=== PATIENT | female | born 1950 | race Caucasian/White ===

== ENCOUNTER 2022-01-02 06:33 | Outpatient (CLI) | payer OTHER, SELFPAY ==
--- NOTE | ~2022-01-02 | MR_ITS ---
EXAMINATION: MR abdomen wo/w con DATE: 01/02/2022 08:01 INDICATION: Complex renal cyst. TECHNIQUE: Magnetic resonance imaging (MRI) of the abdomen was performed without and with 19 mL Multi Shaina intravenous contrast. COMPARISON: None. FINDINGS: There is a small sliding hiatal hernia. There is diffuse hepatic steatosis. The gallbladder is absent . The spleen, pancreas, and right adrenal gland are normal. There is a 3.0 cm mass in left adrenal gl and containing microscopic fat, consistent with an adenoma. There are cysts in the kidneys measuring up to 2.0 cm on the right. There are no dilated loops of bowel. There are no pathologically enlarged lymph nodes. There is no free intraperitoneal fluid. IMPRESSION: 1. Benign cysts in the kidneys. Reviewed, dictated and finalized at location A.
== END 2022-01-02 06:34 | disposition home or self-care (01) ==
DX: N28.1 Cyst of kidney, acquired (principal)
CPT/HCPCS: 74183; A9577

== ENCOUNTER 2022-09-14 14:01 | Emergency (ER) | payer OTHER, SELFPAY ==
--- NOTE | ~2022-09-14 | US_ITS ---
EXAMINATION: US venous doppler [facility] DATE: 09/14/2022 15:40 INDICATION: Lower limb swelling TECHNIQUE: Grayscale ultrasound images without and with compression and Doppler ultrasound images of the bilateral lower extremity veins were obtained. COMPARISON: None. FINDINGS: The visualized portions of right common femoral vein, profunda (deep) femoral vein, femoral vein, pop liteal vein, posterior tibial veins, peroneal veins, gastrocnemius vein and greater saphenous vein ou tflow are patent. The visualized portions of left common femoral vein, profunda femoral vein, femoral vein, popliteal v ein, posterior tibial veins, peroneal veins, gastrocnemius vein and greater saphenous vein outflow ar e patent. IMPRESSION: 1. No deep venous thrombosis in either lower limb. Reviewed, dictated and finalized at location A.
[2022-09-14 14:57] VITALS: BP 157/90; PULSE 86; RESP 18; O2SAT 98
--- NOTE | 2022-09-14 16:08 | ED.GENADULT ---
HPI - General Adult General Chief complaint: Unspecified Stated complaint: generalized pain Time Seen by Provider: 09/14/22 15:05 History of Present Illness HPI narrative: Patient is a 72-year-old female who presents ER with multiple complaints. Her major new complaint that occurred over the last 7 days is lower extremity swelling that occurs at the end of the day after she has been up walking. She reports it causes purplish discoloration of her legs. No history of DVT or PE. No calf pain. No trauma. Patient reports she is also been dealing with generalized body pain for years. She has been to multiple ERs and is seeing multiple physicians. In the last week and a half she has had a CT scan that shows a stable exophytic mass on the kidney that had been previously imaged last November on ultrasound that they felt was a cyst. She reports she has had a bladder sling by Dr. Hernandez and has had some discomfort in her vagina and she is scheduled to see him in 2 days for further evaluation of both of these issues. Patient is also going off on tangents about physicians accusing her of abusing narcotics, this is without prompting or questioning by this physician. Related Data Allergies Allergy/AdvReac Type Severity Reaction Status Date / Time clarithromycin Allergy Mild HIVES Verified 09/14/22 15:00 erythromycin base Allergy Mild HIVES Verified 09/14/22 15:00 morphine Allergy Mild VOMITING X Verified 09/14/22 15:00 3 DAYS prochlorperazine Allergy Mild ANXIOUS/EDG Verified 09/14/22 15:00 Sulfa (Sulfonamide Allergy Mild HIVES Verified 09/14/22 15:00 Antibiotics) adhesive tape Allergy Unknown Verified 09/14/22 15:00 amitriptyline Allergy Unknown Verified 09/14/22 15:00 aspirin Allergy Unknown Verified 09/14/22 15:00 atorvastatin Allergy Unknown Verified 09/14/22 15:00 azithromycin Allergy Unknown Verified 09/14/22 15:00 cefdinir Allergy Unknown Verified 09/14/22 15:00 cyclacillin Allergy Unknown Verified 09/14/22 15:00 gadobenic acid Allergy Other Verified 09/14/22 15:00 [From contrast - MRI] hydromorphone Allergy Unknown Verified 09/14/22 15:00 ibuprofen Allergy Unknown Verified 09/14/22 15:00 levofloxacin Allergy Unknown Verified 09/14/22 15:00 metoclopramide [From Reglan] Allergy Other Verified 09/14/22 15:00 penicillin V Allergy Unknown Verified 09/14/22 15:00 Penicillins Allergy Unknown Verified 09/14/22 15:00 pseudoephedrine Allergy Unknown Verified 09/14/22 15:00 [From Actifed] raloxifene Allergy Unknown Verified 09/14/22 15:00 tramadol Allergy Unknown Verified 09/14/22 15:00 triprolidine Allergy Unknown Verified 09/14/22 15:00 vancomycin Allergy Unknown Verified 09/14/22 15:00 PCN Allergy Mild HIVES Uncoded 09/14/22 15:00 Review of Systems Review of Systems: All systems reviewed & are unremarkable except as noted in HPI and below Constitutional: Constitutional: Reports fatigue and Denies fever(s) ENT: Denies nasal congestion and Denies sore throat Cardiovascular: Cardiovascular: Denies chest pain, Reports leg edema and Denies radiating jaw, neck or arm pain Respiratory: Respiratory: Denies cough, Denies dyspnea and Denies wheezing Musculoskeletal: Musculoskeletal: Reports myalgias, Denies arthralgias and Denies joint swelling PMFSH Past Medical History Medical History (Updated 09/14/22 @ 16:25 by Abilio Pearson MD) Anxiety Depression Fibromyalgia GERD (gastroesophageal reflux disease) Hypercholesterolemia Hypothyroidism Obstructive sleep apnea Surgical History Surgical History (Updated 09/14/22 @ 16:25 by Abilio Pearson MD) History of foot surgery History of hysterectomy Exam Narrative: GENERAL: Well-appearing, well-nourished, and in no acute distress. HEAD: Normocephalic, atraumatic. EYES: PERRL and EOMI. ENT: Mucous membranes moist. CHEST: Clear to auscultation. No respiratory distress. HEART: Regular rate and rhythm. Normal peripheral pulses. EXTREMITIES: Nor
== END 2022-09-14 17:17 | disposition home or self-care (01) ==
PROVIDERS: Emergency Provider Emergency Medicine
DX: R60.0 Localized edema (principal); F41.9 Anxiety disorder, unspecified; F32.A Depression, unspecified; K21.9 Gastro-esophageal reflux disease without esophagitis; E03.9 Hypothyroidism, unspecified; G47.30 Sleep apnea, unspecified; E78.5 Hyperlipidemia, unspecified
CPT/HCPCS: 93970; 99284